=== PATIENT | male | born 1940 | race Caucasian/White ===

== ENCOUNTER 2019-07-28 05:57 | Day surgery (SDC) | payer BC, MEDICARE ==
[2019-07-28] MEDS ORDERED: fentaNYL 100 MCG/2 ML SDV IV ONE ×3 (05:58→07:26)
[2019-07-28] MEDS ORDERED: Midazolam 1 MG/ML 2 ML SDV IV ONE ×5 (05:58→07:36)
[2019-07-28] MEDS ORDERED: Sodium Chloride 0.9% 10 ML Syringe FLUSH PRN (06:00)
[2019-07-28] MEDS ORDERED: Dextrose 5%-0.45% NaCl 1,000 ML IV SCH (06:00)
[2019-07-28] MEDS ORDERED: fentaNYL 100 MCG/2 ML SDV ONE (06:13)
[2019-07-28] MEDS ORDERED: Midazolam 1 MG/ML 2 ML SDV ONE (06:13)
--- NOTE | 2019-07-28 08:41 | OR ---
DATE: 07/28/2019 PROCEDURE: Total colonoscopy. INSTRUMENT USED: [id number] Olympus video colonoscope. PREMEDICATIONS: Fentanyl 100 mcg intravenous, Versed 3 mg intravenous, nasal O2 cannula. 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 INDICATION: The patient with previous colonic tubular adenoma. Surveillance colonoscopic examination is done for detection of any polypoid lesions and removal, endoscopic hemostasis therapy if needed. DESCRIPTION OF PROCEDURE: Initial rectal exam was unremarkable. Rigid anoscopy was normal. The colonoscope was passed with relative ease up to the cecal area. Few diverticula were noted in the distal left colon along with deformity. Colon was found to be tortuous and redundant. Photographs were taken of the cecal area. No bleeding was noted from any of the visualized areas at the commencement of the examination. There was large amount of fecal material that had to be aspirated. Bowel preparation, [place] scale 1 in the right colon and scale 2 in other regions. No stricture. No vascular ectasia. No large isolated ulcerations seen. No evidence of diffuse inflammatory bowel disease in the form of friability, contact bleeding, or ulcerations. No polyp or tumor mass identified. Probing the proximal sides of folds and flexures using adequate distention and clearing of the stool material, withdrawal of the scope was made. Cecum to rectum time over 6 minutes. No bleeding was noted from any of the visualized areas at the completion of examination. IMPRESSION: Diverticulosis. The patient tolerated the procedure well. [facility] /[id number]
[2019-07-28 11:39] VITALS: BP 144/72; PULSE 61
== END 2019-07-28 10:05 | disposition home or self-care (01) ==
LOC: DL.ENDO 05:57
PROVIDERS: ATTEND Internal Medicine Gastroenterology
DX: Z12.11 Encounter for screening for malignant neoplasm of colon (principal); K57.30 Diverticulosis of large intestine without perforation or abscess without bleeding; Q43.8 Other specified congenital malformations of intestine; I25.10 Atherosclerotic heart disease of native coronary artery without angina pectoris; E11.9 Type 2 diabetes mellitus without complications; E78.00 Pure hypercholesterolemia, unspecified; E66.09 Other obesity due to excess calories; J45.909 Unspecified asthma, uncomplicated; N40.1 Benign prostatic hyperplasia with lower urinary tract symptoms; R35.0 Frequency of micturition; M19.90 Unspecified osteoarthritis, unspecified site; Z86.010 Personal history of colon polyps; Z68.32 Body mass index [BMI] 32.0-32.9, adult
CPT/HCPCS: G0121; J2250; J3010; J7042

== ENCOUNTER 2024-09-28 05:10 | Day surgery (SDC) | payer BC, MEDICARE, OTHER ==
[2024-09-28] MEDS: Dextrose 5%-0.45% NaCl 1,000 ML IV SCH (05:48)
[2024-09-28] MEDS ORDERED: Midazolam 1 MG/ML 2 ML SDV ONE (06:12)
[2024-09-28] MEDS ORDERED: Midazolam 1 MG/ML 2 ML SDV IV ONE (06:12)
[2024-09-28] MEDS ORDERED: fentaNYL 100 MCG/2 ML SDV IV ONE (06:12)
[2024-09-28] MEDS ORDERED: fentaNYL 100 MCG/2 ML SDV ONE (06:13)
[2024-09-28] MEDS: Midazolam 1 MG/ML 2 ML SDV IV ONE ×3 (06:29→06:42)
[2024-09-28] MEDS: fentaNYL 100 MCG/2 ML SDV IV ONE ×3 (06:29→06:40)
[2024-09-28 08:12] VITALS: BP 168/85; PULSE 69
== END 2024-09-28 08:52 | disposition home or self-care (01) ==
LOC: DL.ENDO 05:10
PROVIDERS: ATTEND Internal Medicine Gastroenterology
DX: K52.832 Lymphocytic colitis (principal); E11.9 Type 2 diabetes mellitus without complications; E78.00 Pure hypercholesterolemia, unspecified; I25.10 Atherosclerotic heart disease of native coronary artery without angina pectoris
CPT/HCPCS: 45380; 88305; J2250; J3010; J7799

== ENCOUNTER 2025-01-03 22:47 | Inpatient (IN) | payer BC, MEDICARE, OTHER ==
[2025-01-03] MEDS ORDERED: Sodium Chloride 0.9% 10 ML Syringe FLUSH PRN (23:06)
[2025-01-03 23:28] LABS: BASOPHILS PERCENT AUTO 0.1 % (0.0-1.0); EOSINOPHILS PERCENT AUTO 5.6 % (1.0-3.0); HEMOGLOBIN 13.1 g/dL (14.0-18.0); MEAN CORPUSCULAR HEMOGLOBIN 27.3 pg (27.0-34.0); MEAN CORPUSCULAR HGB CONC 32.8 g/dL (33.0-35.0); MEAN CORPUSCULAR VOLUME 83.3 fL (80-100); MONOCYTES PERCENT AUTO 11.8 % (2-8); NEUTROPHILS PERCENT AUTO 59.5 % (42.2-75.2); PLATELET COUNT,PLT 175 10^3/uL (150-450)
[2025-01-03 23:51] LABS: ALANINE AMINOTRANSFERASE,ALT 19 U/L (16-63); ALBUMIN 3.1 g/dL (3.4-5.0); ALKALINE PHOSPHATASE 87 U/L (46-116); ANION GAP 10.9 mEq/L (7-13); ASPARTATE AMNIOTRANSFERASE,AST 15 U/L (15-37); BILIRUBIN TOTAL 0.3 mg/dL (0.2-1.0); BLOOD UREA NITROGEN,BUN 23 mg/dL (7-18); BUN/CREATININE RATIO 17.4 (No establ ref range); CALCIUM 8.9 mg/dL (8.5-10.1); CARBON DIOXIDE,CO2 25 mmol/L (21-32); CHLORIDE,CL 107 mmol/L (98-107); CREATININE 1.32 mg/dL (0.70-1.30); EST CRCL DRUG DOSING (CG) 38.95 mL/min; GLUCOSE RANDOM 117 mg/dL (70-99); MAGNESIUM 1.6 mg/dL (1.8-2.4); POTASSIUM,K 3.9 mmol/L (3.5-5.1); PROTEIN TOTAL,TP 6.4 g/dL (6.4-8.2); SODIUM,NA 139 mmol/L (136-145); URIC ACID 6.4 mg/dL (3.5-7.2)
[2025-01-03 23:52] LABS: A/G RATIO 0.94; C-REACTIVE PROTEIN < 0.50 ng/dL (<=0.50); ESTIMATED GFR 53 mL/min (>=60)
[2025-01-04] MEDS: Lidocaine 1% 5 ML VIAL INJECT ONE (00:21)
[2025-01-04] MEDS: Morphine 2 MG/ML SYRINGE IVPUSH ONE (00:24)
[2025-01-04] MEDS: Morphine 4 MG/ML Syringe ONE ×2 (00:54→01:33)
[2025-01-04] MEDS: Morphine 4 MG/ML VIAL IVPUSH ONE ×2 (00:57→01:33)
[2025-01-04] MEDS: ceFAZolin 2 GM Vial IVPUSH ONE (01:49)
[2025-01-04] MEDS: Ondansetron 4 MG/2 ML SDV IVPUSH ONE (02:14)
[2025-01-04] MEDS ORDERED: Albuterol/Ipratropium 3.0-0.5 MG/3 ML Neb Soln NEB PRN (02:49)
[2025-01-04] MEDS ORDERED: Acetaminophen 325 MG Tab PO PRN (02:50)
[2025-01-04] MEDS ORDERED: Acetaminophen/HYDROcodone 325-5 MG Tab PO PRN (02:51)
[2025-01-04] MEDS ORDERED: Melatonin 3 MG Tab PO PRN (02:52)
[2025-01-04] MEDS ORDERED: Calcium Carbonate 500 MG Tab.Chew PO PRN (02:53)
[2025-01-04] MEDS: Ibuprofen 600 MG Tab PO ONE ×2 (03:50→20:57)
[2025-01-04] MEDS: Pantoprazole 40 MG Tab.CR PO SCH (03:51)
[2025-01-04] MEDS: HYDROmorphone 0.5 MG/0.5 ML Syringe IVPUSH PRN (03:52)
[2025-01-04] MEDS: Dexamethasone 4 MG/ML SDV IVPUSH ONE (03:52)
[2025-01-04] MEDS ORDERED: Dexamethasone 4 MG/ML SDV IVPUSH ONE (05:00)
[2025-01-04 06:22] LABS: HEMATOCRIT 40.3 % (40.0-54.0); HEMOGLOBIN 12.8 g/dL (14.0-18.0); MEAN CORPUSCULAR HEMOGLOBIN 26.4 pg (27.0-34.0); MEAN CORPUSCULAR HGB CONC 31.8 g/dL (33.0-35.0); MEAN CORPUSCULAR VOLUME 83.1 fL (80-100); RED BLOOD CELL COUNT 4.85 10^6/uL (4.6-6.2)
[2025-01-04 06:42] LABS: ALBUMIN 3.1 g/dL (3.4-5.0); ANION GAP 14.4 mEq/L (7-13); BILIRUBIN TOTAL 0.4 mg/dL (0.2-1.0); BUN/CREATININE RATIO 15.4 (No establ ref range); CALCIUM 8.9 mg/dL (8.5-10.1); CREATININE 1.3 mg/dL (0.70-1.30); EST CRCL DRUG DOSING (CG) 39.55 mL/min; MAGNESIUM 1.6 mg/dL (1.8-2.4); POTASSIUM,K 4.4 mmol/L (3.5-5.1); PROTEIN TOTAL,TP 6.3 g/dL (6.4-8.2)
[2025-01-04 06:43] LABS: A/G RATIO 0.97
[2025-01-04] MEDS: Sodium Chloride 0.9% 1,000 ML IV SCH (07:52)
[2025-01-04] MEDS: Magnesium Sulfate 2 GM/50 mL 2 GM in Premix Bag 1 BAG IV ONE ×2 (07:57→08:00)
[2025-01-04] MEDS: Ondansetron 4 MG/2 ML SDV IVPUSH PRN (08:01)
[2025-01-04] MEDS ORDERED: Non-Formulary Medication 1 Each (Mirabegron [Myrbetriq] 25 MG Tab.Er) PO SCH (09:00)
[2025-01-04] MEDS ORDERED: Pantoprazole 40 MG Tab.CR PO SCH (09:00)
[2025-01-04] MEDS: Atenolol 25 MG Tab PO SCH (10:13)
[2025-01-04] MEDS: Clopidogrel 75 MG Tab PO SCH (10:13)
[2025-01-04] MEDS: Aspirin 81 MG Tab.EC PO SCH (10:13)
[2025-01-04] MEDS: Lisinopril 10 MG Tab PO SCH (10:13)
[2025-01-04] MEDS: atorvaSTATin 20 MG Tab PO SCH (10:14)
[2025-01-04] MEDS: Scopalamine 1mg/3day Transdermal Patch TOP ONE (13:38)
[2025-01-04] MEDS: Metoclopramide 10 MG/2 ML SDV IVPUSH PRN (13:38)
[2025-01-04] MEDS: Primidone 50 MG Tab PO SCH (20:57)
[2025-01-04] MEDS: Pantoprazole 40 MG Vial IVPUSH ONE (20:59)
[2025-01-04] MEDS: Check SCOPOLAMINE Patch TRDERM SCH (21:06)
[2025-01-05 06:36] LABS: ALBUMIN 2.8 g/dL (3.4-5.0); ANION GAP 10.4 mEq/L (7-13); BILIRUBIN TOTAL 0.6 mg/dL (0.2-1.0); BUN/CREATININE RATIO 13.9 (No establ ref range); CALCIUM 8.9 mg/dL (8.5-10.1); CREATININE 1.44 mg/dL (0.70-1.30); EST CRCL DRUG DOSING (CG) 35.7 mL/min; POTASSIUM,K 4.4 mmol/L (3.5-5.1); PROTEIN TOTAL,TP 5.8 g/dL (6.4-8.2)
[2025-01-05 06:40] LABS: A/G RATIO 0.93
[2025-01-05 07:37] VITALS: BP 143/58
[2025-01-05] MEDS: Tolterodine 2 MG Cap.ER PO SCH (08:40)
[2025-01-05] MEDS: predniSONE 20 MG Tab PO SCH (08:41)
[2025-01-05 08:44] VITALS: PULSE 60
== END 2025-01-05 10:09 | disposition home or self-care (01) | DRG 351 ==
LOC: DL.ED 22:47 → DL.MS 01-04 02:14
PROVIDERS: ADMIT Internal Medicine; ATTEND Internal Medicine
PROC: 0S9M3ZZ Drainage of Right Metatarsal-Phalangeal Joint, Percutaneous Approach (ICD-10-PCS; principal; 2025-01-04)
DX: M19.171 Post-traumatic osteoarthritis, right ankle and foot (principal); N17.9 Acute kidney failure, unspecified; I25.10 Atherosclerotic heart disease of native coronary artery without angina pectoris; Z66 Do not resuscitate; E78.00 Pure hypercholesterolemia, unspecified; N40.0 Benign prostatic hyperplasia without lower urinary tract symptoms; M54.9 Dorsalgia, unspecified; G89.29 Other chronic pain; M19.90 Unspecified osteoarthritis, unspecified site; J45.909 Unspecified asthma, uncomplicated; E66.9 Obesity, unspecified; I12.9 Hypertensive chronic kidney disease with stage 1 through stage 4 chronic kidney disease, or unspecified chronic kidney disease; R73.9 Hyperglycemia, unspecified; N18.9 Chronic kidney disease, unspecified; Z74.09 Other reduced mobility; E83.42 Hypomagnesemia; E88.09 Other disorders of plasma-protein metabolism, not elsewhere classified; Z79.02 Long term (current) use of antithrombotics/antiplatelets; Z79.899 Other long term (current) drug therapy; Z79.82 Long term (current) use of aspirin; Z79.52 Long term (current) use of systemic steroids; Z87.01 Personal history of pneumonia (recurrent); Z86.0100 Personal history of colon polyps, unspecified; Z87.81 Personal history of (healed) traumatic fracture; T14.90XS Injury, unspecified, sequela; Z98.49 Cataract extraction status, unspecified eye; Z98.890 Other specified postprocedural states; Z95.828 Presence of other vascular implants and grafts; Z91.81 History of falling; Z68.29 Body mass index [BMI] 29.0-29.9, adult
CPT/HCPCS: 36415; 73620-RT; 73630-RT; 80053; 83036; 83735; 84550; 85025; 85027; 85651; 86140; 87040; 96374; 96375; 96376; 99222; 99238; 99284-25; 99285; A9270-GY; J0690; J1100; J2003; J2270; J2405; J2470; J2765; J3475; J7030; J7512